=== PATIENT | male | born 1940 | race Caucasian/White ===

== ENCOUNTER 2021-11-21 10:31 | Inpatient (IN) | payer MEDICARE, BC, SELFPAY ==
[2021-11-21] VITALS (10 sets, daily range): BP systolic 130–152; BP diastolic 76–104; PULSE 90–110; RESP 16–22; TEMP 36.1–36.9; O2SAT 87–98; BMI 26.1
--- NOTE | ~2021-11-21 | CT_ITS ---
EXAMINATION: CTA chest PE protocol DATE: 11/21/2021 12:22 INDICATION: COVID-19 pneumonia. TECHNIQUE: Computed tomography angiography (CTA) of the chest was performed with 100 mL Omnipaque-350 intravenous contrast timed to evaluate the pulmonary arteries. Coronal maximum intensity projection 3D-reconstructions were created by the technologist. Automated exposure control and iterative reconst ruction technique were employed. The dose-length product was 710.43 mGy-cm. COMPARISON: Chest single view 11/21/2021 FINDINGS: Calcified pulmonary nodules and calcified hilar and mediastinal lymph nodes are consistent with old granulomatous disease. There are patchy airspace and groundglass opacities in right lower lo be. There are mild groundglass opacities in the upper lobes and left lower lobe. There is mild atelec tasis bilaterally. No pleural effusion. The heart size is normal. There are coronary artery calcifica tions. No pericardial effusion. There is no pulmonary embolus. There is mild noncalcified right hilar lymphadenopathy. The heart size is normal. No pericardial effusion. There are changes of cholecystec alisha. Epidural electrodes are noted. There is mild thoracic spondylosis and severe cervical spondylos is. IMPRESSION: 1. No pulmonary embolus. 2. Multifocal pneumonia, worst in right lower lobe. 3. Mild right hilar lymphadenopathy, likely reactive. Reviewed, dictated and finalized at location A.
--- NOTE | ~2021-11-21 | XR_ITS ---
EXAMINATION: XR chest 1V portable DATE: 11/21/2021 11:43 INDICATION: Shortness of breath. TECHNIQUE: A single frontal view of the chest was obtained on 2 radiographs. COMPARISON: None. FINDINGS: Calcified bilateral lung nodules and calcified hilar lymph nodes are consistent with old gr anulomatous disease. There is mild atelectasis in the lower lung zones. No pleural effusion or pneumo thorax. The heart size is normal. Surgical clips in the right upper quadrant are likely from cholecys tectomy. Epidural electrodes are noted. There is a suture anchor in left humeral head. IMPRESSION: 1. Mild atelectasis in the lower lung zones. Reviewed, dictated and finalized at location A.
--- NOTE | ~2021-11-21 | XR_ITS ---
XR chest 1V portable 11/23/2021 09:32 Indication: Lethargy. Shortness of breath. Procedure: AP portable chest Comparison: 11/21/2021 Findings: There is bilateral airspace disease in the perihilar and bibasilar locations. There is [place] bronchial thickening. Spinal stimulator leads are noted. There are cholecystectomy clips. Impression: 1: Interval development of bilateral airspace disease which may represent edema or pneumonia. Reviewed, dictated and finalized at location A. Impression: 1: Interval development of bilateral airspace disease which may represent edema or pneumonia.
--- NOTE | ~2021-11-21 | US_ITS ---
US abdomen limited INDICATION: Abnormal liver function tests PROCEDURE: Realtime right upper abdominal ultrasound. COMPARISON: No prior studies for comparison. FINDINGS: The pancreas is obscured by bowel content. Liver echotexture is normal without focal mass or intrahepatic biliary dilatation. There is normal directional flow in the portal vein. Gallbladder is surgically absent. Common bile duct measures 3 mm. IMPRESSION: 1: Unremarkable limited abdominal ultrasound. Reviewed, dictated and finalized at location A.
--- NOTE | 2021-11-21 11:07 | ECG_ITS ---
Measurements Intervals [place] Rate: 91 P: 31 NC: 170 QRS: 3 QRSD: 89 T: 3 QT: 355 QTc: 438 Interpretive Statements SINUS RHYTHM LOW QRS VOLTAGE IN PRECORDIAL LEADS [QRS DEFLECTION < 1.0 mV IN CHEST LEADS] INFERIOR MYOCARDIAL INFARCTION , PROBABLY OLD [40+ ms Q WAVE AND/OR ST/T ABNORMALITY IN II/aVF] NONSPECIFIC ST-T WAVE ABNORMALITY NO PREVIOUS ECG AVAILABLE FOR COMPARISON Electronically Signed On 11-21-2021 17:28:01 CDT by Cayla Burton M.D.
[2021-11-21 11:26] LABS: Alveolar/Arterial O2 Gradient 86.3 mmHg; Base Excess ABG -0.2 mEq/l (+/-2.0); Carboxyhemoglobin 1.4 % THb (0-2.0); Device NASAL CANNULA; Fractional Inspired Oxygen 28 %; HCO3 ABG 23.4 mEq/l (22.0-26.0); Methemoglobin ABG 0.3 %THb (0-1.5); Modified Allen's Test Pass; Oxygen Content ABG 16.3 %vol (16.0-22.0); Oxygen Saturation ABG 95.3 % (95.0-100.0); Oxyhemoglobin 91.2 % THb (90.0-100.0); PCO2 ABG 34.8 mmHg (35.0-45.0); PO2 ABG 72.3 mmHg (80.0-100.0); PO2 FiO2 Ratio Arterial Blood 2.58 %; Reduced Hemoglobin 7.1 %THb (0-5.0); Site Drawn LEFT RADIAL; Total Hemoglobin 12.7 g/dL (12.0-18.0); pH ABG 7.446 (7.350-7.450)
[2021-11-21 11:50] LABS: Basophils Percent Auto 0.4 % (0.2-1.2); Eosinophils Absolute Auto 0.5 K/mm3 (0-0.3); Eosinophils Percent Auto 6.6 % (0-4.4); Hematocrit 39.4 % (42.0-52.0); Hemoglobin 12.7 g/dL (14.0-18.0); Immature Granulocyte Absolute 0.04 K/mm3 (0.00-0.031); Immature Granulocyte Percent A 0.6 % (0-0.5); Lymphocytes Absolute Auto 0.46 K/mm3 (0.9-3.2); Lymphocytes Percent Auto 6.8 % (18.3-44.2); Mean Corpuscular HGB Conc 32.2 g/dl (32-36); Mean Corpuscular Hemoglobin 31.8 pg (26-34); Mean Corpuscular Volume 98.5 fl (80-100); Mean Platelet Volume 10.7 fl (7.4-10.4); Monocytes Absolute Auto 0.9 K/mm3 (0.1-0.6); Monocytes Percent Auto 12.7 % (2.6-8.5); Neutrophils Absolute Auto 4.9 K/mm3 (1.3-6.7); Neutrophils Percent Auto 72.9 % (45.5-73.1); Platelet Count Result 214 k/mm3 (150-375); Red Cell Distribution Width 14.9 % (11.5-14.5); White Blood Count 6.8 K/mm3 (4.5-10.0)
[2021-11-21 12:01] LABS: Alanine Aminotransferase 45 U/L (6-50); Albumin Level 3.9 g/dL (3.5-5.1); Alkaline Phosphatase 154 U/L (38-126); Anion Gap 13 mmol/L (8-16); Aspartate Amino Transferase 85 U/L (17-59); Blood Urea Nitrogen 29 mg/dL (9-20); Calcium 9.2 mg/dL (8.4-10.2); Carbon Dioxide 29 mmol/L (22-30); Chloride 109 mmol/L (98-107); Estimated CRCL calculation 56 ml/min; Estimated Glomerular Filt Rate > 60; Glucose 119 mg/dL (65-110); Potassium 3.4 mmol/L (3.4-5.0); Sodium 151 mmol/L (137-145)
[2021-11-21 12:03] LABS: Magnesium 2.5 mg/dL (1.6-2.3)
[2021-11-21 12:13] LABS: NT Pro B Type Natriuretic Pept 124 pg/mL (5-100)
--- NOTE | 2021-11-21 12:16 | ED.GENADULT ---
HPI - General Adult General Chief complaint: Shortness of Breath/Dyspnea Stated complaint: recent covid, b/l PNA on CXR History of Present Illness HPI narrative: 81-year-old male with past medical history of dementia and a shrinking spine per presents to our department from [facility]. Patient was diagnosed with COVID approximately 2 weeks prior to arrival which progressed to a pneumonia. He has been taking antibiotics for the pneumonia but staff at the residential noticed that patient had increasing oxygen requirements through the night. No further history available at this time as patient is nonverbal. All history obtained from family at bedside. Patient is a DNR. Related Data Allergies Allergy/AdvReac Type Severity Reaction Status Date / Time clindamycin AdvReac Hallucinati Verified 11/21/21 13:16 ng codeine AdvReac Vomiting Verified 11/21/21 13:16 Review of Systems Review of Systems: Gen.: Denies fevers or chills Eyes: Denies eye pain or visual change ENT: Denies congestion Respiratory: Denies shortness of breath or cough CV: Denies chest pain or palpitations GI: Denies abdominal pain nausea, emesis or diarrhea denies burning, urgency, frequency or hematuria Musculoskeletal: Denies back pain or muscle pain Neuro: Denies numbness, tingling, weakness or focal weakness Skin: Denies rash Except as documented, all other systems reviewed and negative Exam Narrative: GENERAL: Well-appearing, well-nourished, and in no acute distress. HEAD: Normocephalic, atraumatic. EYES: PERRLA and EOMI. ENT: Nares clear, no rhinorrhea or epistaxis. Mucous membranes moist. NECK: Supple. CHEST: Clear to auscultation. No respiratory distress. HEART: Regular rate and rhythm. No murmur heard. Normal peripheral pulses. ABDOMEN: Soft, nontender, nondistended, normal active bowel sounds. EXTREMITIES: Normal range of motion. No edema. SKIN: Warm, dry, no rash. NEURO: Alert and nonverbal PSYCH: Normal mood and affect. Course Vital Signs Vital signs: Vital Signs Temperature 97.6 F 11/21/21 10:34 Pulse Rate 101 H 11/21/21 10:34 Respiratory Rate 22 H 11/21/21 10:34 Blood Pressure 152/104 H 11/21/21 10:34 Pulse Oximetry 95 11/21/21 10:34 Temperature 97.6 F 11/21/21 10:34 Pulse Rate 92 11/21/21 11:51 Respiratory Rate 19 11/21/21 11:51 Blood Pressure 139/84 11/21/21 11:51 Pulse Oximetry 98 11/21/21 11:51 Oxygen Delivery Nasal Cannula 11/21/21 11:15 Oxygen Flow Rate 2 11/21/21 11:15 Medical Decision Making MDM Narrative Medical decision making narrative: Hypernatremia, prerenal azotemia, dehydration IMPRESSION: 1. No pulmonary embolus. 2. Multifocal pneumonia, worst in right lower lobe. 3. Mild right hilar lymphadenopathy, likely reactive. Broad-spectrum antibiotics ordered patient will require admission for pneumonia, dehydration, prerenal azotemia, hypernatremia. I had a comprehensive discussion with Fela the hospitalist who accepts admission. Vital Signs Vital Signs: Vital Signs Temperature 97.6 F 11/21/21 10:34 Pulse Rate 101 H 11/21/21 10:34 Respiratory Rate 22 H 11/21/21 10:34 Blood Pressure 152/104 H 11/21/21 10:34 Pulse Oximetry 95 11/21/21 10:34 Temperature 97.6 F 11/21/21 10:34 Pulse Rate 92 11/21/21 11:51 Respiratory Rate 19 11/21/21 11:51 Blood Pressure 139/84 11/21/21 11:51 Pulse Oximetry 98 11/21/21 11:51 Oxygen Delivery Nasal Cannula 11/21/21 11:15 Oxygen Flow Rate 2 11/21/21 11:15 Lab Data Result diagrams: 11/21/21 11:35 11/21/21 11:35 Labs: Lab Results 11/21/21 11/21/21 11/21/21 Range/Units 11:16 11:35 11:35 WBC 6.8 (4.5-10.0) K/mm3 RBC 4.00 L (4.6-6.20) M/mm3 Hgb 12.7 L (14.0-18.0) g/dL Hct 39.4 L (42.0-52.0) % MCV 98.5 (80-100) fl MCH 31.8 (26-34) pg MCHC 32.2 (32-36) g/dl RDW 14.9 H (11.5-14.5) % Plt Count
[2021-11-21 15:05] LABS: SARS-CoV-2 RNA PCR Positive
[2021-11-21] MEDS: LACTATED RINGERS 1,000 ML 500 ML IV CONT (15:11)
--- NOTE | 2021-11-21 19:45 | PM.IMHP ---
H&P: HPI History of Present Illness Date/Time: 11/21/21 19:45 Chief Complaint: Shortness of breath Narrative: this is an 81-year-old male patient who has a history of dementia and resides at [facility]. The patient is not able to answer questions for me. He could answer to his name but is not able to give any other answers the questions. The patient was recently diagnosed with COVID about 2 weeks ago. patient had developed pneumonia and had been on antibiotics for pneumonia the [facility] noticed that the patient had increasing oxygen requirements throughout the night. The patient is a DNR Information is obtained from [facility] records. His H&H is 12.7 and 39.4. Sodium is 151. Chloride 109. BUN 29. Magnesium is 2.5. Glucose 119. AST 85. Alkaline phosphatase 154. Troponin was negative. BNP 124. The patient continues to test positive for COVID. Chest x-ray was read as mild atelectasis in the lower lung zones. CTA was read as no pulmonary embolus. Multifocal pneumonia worse in the right lower lobe. Mild right hilar lymphadenopathy likely reactive. He was afebrile at the time of admission. the patient was started on lactated Ringer's, vancomycin and cefepime. Initially the patient was admitted to observation and then changed to inpatient status on the date of service of 11/21/2021. Review of Systems Review of Systems: See HPI. The patient is not able to answer questions. All systems reviewed & are unremarkable except as noted in HPI and below Constitutional: Constitutional: Reports as per HPI and Reports no additional constitutional complaints Eyes: Eyes: Reports as per HPI and Reports no additional eye complaints ENT: Reports system reviewed and no additional complaints, except as documented and Reports Normal hearing present Cardiovascular: Cardiovascular: Reports no additional cardiovascular complaints Respiratory: Respiratory: Reports no additional respiratory complaints and Reports no additional respiratory complaints Gastrointestinal: Gastrointestinal: Reports as per HPI and Reports no additional gastrointestinal complaints Musculoskeletal: Musculoskeletal: Reports no additional musculoskeletal complaints Integumentary/Breasts: Skin/Breast: Reports system reviewed and no additional complaints, except as docu and Reports as per HPI Neurologic: Reports system reviewed and no additional complaints, except as documented, Reports as per HPI and Reports Normal hearing present Psychiatric: Psychiatric: Reports no additional psychiatric complaints and Reports as per HPI Endocrine: Endocrine: Reports no additional endocrine complaints Hematologic/Lymphatic: Hematologic/Lymphatic: Reports no additional hematologic/lymphatic complaints Allergic/Immunologic: Allergic/Immunologic: Reports no additional allergic/immunologic complaints [facility] Past Medical History Medical History (Updated 11/21/21 @ 20:11 by Fela Garcia NP) BPH (benign prostatic hyperplasia) Chronic kidney disease Dementia Depression Generalized anxiety disorder History of COVID-19 Hypertension Obstructive sleep apnea Rheumatoid arthritis Surgical History Surgical History (Updated 11/21/21 @ 20:12 by Fela Garcia NP) Surgical history unknown Family History Family History Father Brain aneurysm Mother Parkinsons disease Pulmonary disease Congestive heart failure Sibling Dementia Social History Social History (Updated 11/21/21 @ 20:13 by Fela Garcia NP) Social History: the patient is listed as being and Retired. The patient has a listed for the next of kin and 2 sons and a daughter is emergency contact. code status DNR Smoking status: Never smoker Alcohol intake: never Substance use: never Substance use type: does not use Spiritual care concerns: No Meds Home Medications and
[2021-11-21 21:12] LABS: Anion Gap 8 mmol/L (8-16); Blood Urea Nitrogen 27 mg/dL (9-20); Calcium 8.9 mg/dL (8.4-10.2); Carbon Dioxide 28 mmol/L (22-30); Chloride 113 mmol/L (98-107); Estimated CRCL calculation 65 ml/min; Estimated Glomerular Filt Rate > 60; Glucose 115 mg/dL (65-110); Potassium 3.2 mmol/L (3.4-5.0); Sodium 149 mmol/L (137-145)
[2021-11-21] MEDS: MELATONIN 5 MG TABLET 10 MG PO (22:08)
[2021-11-21] MEDS: guaiFENesin 12 HR 600 MG TABCR PO (22:08)
[2021-11-21] MEDS: PREGABALIN (*CRX) 50 MG CAPSULE 100 MG PO (22:08)
[2021-11-22] VITALS (19 sets, daily range): BP systolic 122–164; BP diastolic 69–96; PULSE 83–112; RESP 16–22; TEMP 36.4–37.4; O2SAT 92–97
[2021-11-22] MEDS: IPRATROPIUM BR 0.02% INH SOLN 0.5 MG/2.5 ML VIAL INHALATION ×6 (00:15→20:46)
[2021-11-22] MEDS: POTASSIUM CHLORIDE 20 MEQ PACKET (FOR LIQUID) 40 MEQ PO (02:16)
[2021-11-22] MEDS: ACETAMINOPHEN 500 MG TABLET PO (02:16)
[2021-11-22] MEDS: ALBUTEROL SULFATE NEB 2.5 MG/3 ML INH INHALATION (04:02)
--- NOTE | 2021-11-22 10:04 | PCSTNOTE ---
Bedside Swallow Evaluation order cancelled as patient is appropriate for Modified Barium Swallow study.
--- NOTE | 2021-11-22 11:58 | PCSTNOTE ---
ST on hold: Modified Barium Swallow could not be completed today as patient would not arouse; will attempt again tomorrow.
--- NOTE | 2021-11-22 12:02 | PM.IMPN ---
Progress Note: A&P Assessment and Plan (1) Pneumonia: Code(s): J18.9 - Pneumonia, unspecified organism Status: Acute Assessment and Plan: - The patient was started on hospital-acquired pneumonia protocol with antibiotic stewardship of cefepime Zosyn and vancomycin. please deescalate antibiotics when feasible -He is 2 weeks post COVID and still testing positive for COVID. -Chest x-ray shows atelectasis but his CTA shows multifocal pneumonia worse in the right lower lobe. - the patient is currently hypoxic and he is on 2 L per nasal cannula. - the patient is a DNR in the event that his condition worsens. -continue with dual nebulizers. - sputum and blood cultures are pending. -Continue Tylenol for pain or fever. - continue with Mucinex -The patient had been on Levaquin outpatient. (2) Dementia: Code(s): F03.90 - Unspecified dementia, unspecified severity, without behavioral disturbance, psychotic disturbance, mood disturbance, and anxiety Status: Acute Assessment and Plan: -The patient is only orientated to himself. (3) Chronic kidney disease: Code(s): N18.9 - Chronic kidney disease, unspecified Status: Acute Assessment and Plan: -Patient's BUN is 29 creatinine is 1.0 with an estimated GFR of 56. Please continue to monitor. - avoid nephrotoxic medication. (4) BPH (benign prostatic hyperplasia): Code(s): N40.0 - Benign prostatic hyperplasia without lower urinary tract symptoms Status: Acute Assessment and Plan: - continue with tamsulosin. (5) Rheumatoid arthritis: Code(s): M06.9 - Rheumatoid arthritis, unspecified Status: Acute Assessment and Plan: - continue with Lyrica -Continue with Remeron Continue with Cymbalta -continue with Arava - continue with prednisone Continue with methotrexate (6) Obstructive sleep apnea: Code(s): G47.33 - Obstructive sleep apnea (adult) (pediatric) Status: Acute Assessment and Plan: home settings for CPAP (7) Generalized anxiety disorder: Code(s): F41.1 - Generalized anxiety disorder Status: Acute Assessment and Plan: - continue with Seroquel - continues Remeron (8) Depression: Code(s): F32.A - Depression, unspecified Status: Acute Assessment and Plan: -continue with Remeron -continue with Cymbalta (9) Hypertension: Code(s): I10 - Essential (primary) hypertension Status: Acute Assessment and Plan: -p.r.n. hydralazine with parameters (10) History of COVID-19: Code(s): Z86.16 - Personal history of COVID-19 Status: Acute Assessment and Plan: patient had a history of COVID infection weeks ago received treatment for it. Subjective Date/time seen: 11/22/21 12:02 Patient was seen during the morning rounds today. Patient has mild shortness of breath. No chest pain. Mood stable. Review of Systems Review of Systems: All systems reviewed & are unremarkable except as noted in HPI and below Constitutional: Constitutional: Reports as per HPI and Reports no additional constitutional complaints Eyes: Eyes: Reports as per HPI and Reports no additional eye complaints ENT: Reports system reviewed and no additional complaints, except as documented and Reports Normal hearing present Cardiovascular: Cardiovascular: Reports no additional cardiovascular complaints Respiratory: Respiratory: Reports no additional respiratory complaints and Reports no additional respiratory complaints Gastrointestinal: Gastrointestinal: Reports as per HPI and Reports no additional gastrointestinal complaints Musculoskeletal: Musculoskeletal: Reports no additional musculoskeletal complaints Integumentary/Breasts: Skin/Breast: Reports system reviewed and no additional complaints, except as docu and Reports as per HPI Neurologic: Reports system reviewed and no additional complaints, except as documented, R
[2021-11-22] MEDS: POTASSIUM CHLORIDE INJ 40 MEQ in SODIUM CHLORIDE 0.9% IV 500 ML 130 MEQ IVPB (14:37)
--- NOTE | 2021-11-22 16:14 | P.CDI_ITS ---
CDI Query Clarification Request Please clarify the status of the patient's COVID-19 infection, if known. Risk Factors:Patient diagnosed with COVID-19 two weeks prior to arrival, which progressed to pneumonia. Clinical Indicators: Patient continues to test positive for COVID, 11/21/21 Treatment: Vancomycin, Albuterol nebs. * COVID-19 is a current/active infection * Current condition is a sequela of COVID-19 * Past history of COVID-19 * Other explanation of clinical findings (please specify) * Unable to determine <KARINA Moseley - Last Filed: 11/22/21 16:17> Please clarify the status of the patient's COVID-19 infection, if known. Risk Factors:Patient diagnosed with COVID-19 two weeks prior to arrival, which progressed to pneumonia. Clinical Indicators: Patient continues to test positive for COVID, 11/21/21 Treatment: Vancomycin, Albuterol nebs. * COVID-19 is a current/active infection * Current condition is a sequela of COVID-19 * Past history of COVID-19 * Other explanation of clinical findings (please specify) * Unable to determine * <Mendez Bauer MD - Last Filed: 11/23/21 14:51> Clarified Diagnosis (1) Pneumonia: Code(s): J18.9 - Pneumonia, unspecified organism <KARINA Moseley - Last Filed: 11/22/21 16:17> Status: Acute <KARINA Moseley - Last Filed: 11/22/21 16:17> Assessment and Plan: Past history of COVID <Mendez Bauer MD - Last Filed: 11/23/21 14:51> Provider Comments Past history of COVID <Mendez Bauer MD - Last Filed: 11/23/21 14:51>
--- NOTE | 2021-11-22 20:50 | PC.NURSE ---
Held 2100 dose of Melatonin and Protonix due to NPO status and patient's inability to follow commands to open mouth/swallow. Patient has barium swallow study scheduled for 11/23/21.
[2021-11-23] VITALS (17 sets, daily range): BP systolic 123–143; BP diastolic 77–89; PULSE 84–106; RESP 14–20; TEMP 36.3–38.8; O2SAT 92–96
[2021-11-23] MEDS: IPRATROPIUM BR 0.02% INH SOLN 0.5 MG/2.5 ML VIAL INHALATION ×4 (01:10→13:30)
[2021-11-23] MEDS: hydrALAZINE HCL 20 MG/ML VIAL 10 MG IV PUSH (01:26)
[2021-11-23 06:27] LABS: Alanine Aminotransferase 79 U/L (6-50); Albumin Level 3.5 g/dL (3.5-5.1); Alkaline Phosphatase 174 U/L (38-126); Anion Gap 7 mmol/L (8-16); Aspartate Amino Transferase 117 U/L (17-59); Bilirubin,Total 1.4 mg/dL (0.2-1.3); Blood Urea Nitrogen 25 mg/dL (9-20); Calcium 8.8 mg/dL (8.4-10.2); Carbon Dioxide 27 mmol/L (22-30); Chloride 118 mmol/L (98-107); Estimated CRCL calculation 53 ml/min; Estimated Glomerular Filt Rate > 60; Glucose 107 mg/dL (65-110); Potassium 3.2 mmol/L (3.4-5.0); Sodium 152 mmol/L (137-145)
[2021-11-23 09:42] LABS: Hematocrit 41.8 % (42.0-52.0); Hemoglobin 12.9 g/dL (14.0-18.0); Mean Corpuscular HGB Conc 30.9 g/dl (32-36); Mean Corpuscular Hemoglobin 30.8 pg (26-34); Mean Corpuscular Volume 99.8 fl (80-100); Mean Platelet Volume 10.8 fl (7.4-10.4); Platelet Count Result 260 k/mm3 (150-375); Red Blood Count 4.19 M/mm3 (4.6-6.20); Red Cell Distribution Width 15.4 % (11.5-14.5); White Blood Count 7.5 K/mm3 (4.5-10.0)
[2021-11-23 09:51] LABS: Alanine Aminotransferase 84 U/L (6-50); Albumin Level 3.2 g/dL (3.5-5.1); Alkaline Phosphatase 166 U/L (38-126); Anion Gap 9 mmol/L (8-16); Aspartate Amino Transferase 116 U/L (17-59); Bilirubin,Total 1.2 mg/dL (0.2-1.3); Blood Urea Nitrogen 26 mg/dL (9-20); Calcium 8.8 mg/dL (8.4-10.2); Carbon Dioxide 25 mmol/L (22-30); Chloride 119 mmol/L (98-107); Estimated CRCL calculation 58 ml/min; Estimated Glomerular Filt Rate > 60; Glucose 102 mg/dL (65-110); Potassium 3.4 mmol/L (3.4-5.0); Sodium 153 mmol/L (137-145)
[2021-11-23] MEDS: DEXTROSE 5%/0.45% SOD CHL 1,000 ML 75 ML IV CONT (10:05)
--- NOTE | 2021-11-23 10:45 | PC.NURSE ---
Pt's , Roslyn, called asking for an update on pt's condition. I answered her questions. She explained that family (daughter and son in law) were coming into town this afternoon so they could all talk and make decisions about what they are willing to do going forward with pt's care.
[2021-11-23 11:15] LABS: Add Urine Microscopic? YES; Appearance Urine Cloudy (Clear); Bilirubin Urine Negative (Negative); Blood Urine Negative (Negative); Color Urine Amber (Yellow); Glucose Urine UA Negative (Negative); Ketones Urine Negative (Negative); Leukocyte Esterase Ur Negative LEU/UL (Negative); Mucus Urine Rare /lpf; Nitrate Urine Negative (Negative); Protein Urine 1+ mg/dL (Negative); Specific Grav Ur 1.024 (1.001-1.035); Squamous Epithelial Cell Urine Rare /hpf (Few); Urobilinogen Urine Negative mg/dL (<2.0)
--- NOTE | 2021-11-23 11:43 | PM.IMPN ---
Progress Note: A&P Assessment and Plan (1) Pneumonia: Code(s): J18.9 - Pneumonia, unspecified organism Status: Acute (2) Dementia: Code(s): F03.90 - Unspecified dementia, unspecified severity, without behavioral disturbance, psychotic disturbance, mood disturbance, and anxiety Status: Acute (3) Chronic kidney disease: Code(s): N18.9 - Chronic kidney disease, unspecified Status: Acute (4) BPH (benign prostatic hyperplasia): Code(s): N40.0 - Benign prostatic hyperplasia without lower urinary tract symptoms Status: Acute (5) Rheumatoid arthritis: Code(s): M06.9 - Rheumatoid arthritis, unspecified Status: Acute (6) Obstructive sleep apnea: Code(s): G47.33 - Obstructive sleep apnea (adult) (pediatric) Status: Acute (7) Generalized anxiety disorder: Code(s): F41.1 - Generalized anxiety disorder Status: Acute (8) Depression: Code(s): F32.A - Depression, unspecified Status: Acute (9) Hypertension: Code(s): I10 - Essential (primary) hypertension Status: Acute (10) History of COVID-19: Code(s): Z86.16 - Personal history of COVID-19 Status: Acute (11) Hypernatremia: Code(s): E87.0 - Hyperosmolality and hypernatremia Status: Acute Assessment and Plan: patient has difficulty swallowing. Because of drowsiness. Will give some IV fluids and monitor his sodium. Plan Past history of COVID Time Spent With Patient Time: Patient had positive COVID And received treatment would 2 weeks ago. Subjective Date/time seen: 11/23/21 11:43 Patient was seen during the morning rounds today. Patient is still very drowsy and weak. No shortness of breath or chest pain. Review of Systems Review of Systems: All systems reviewed & are unremarkable except as noted in HPI and below Constitutional: Constitutional: Reports as per HPI and Reports no additional constitutional complaints Eyes: Eyes: Reports as per HPI and Reports no additional eye complaints ENT: Reports system reviewed and no additional complaints, except as documented and Reports Normal hearing present Cardiovascular: Cardiovascular: Reports no additional cardiovascular complaints Respiratory: Respiratory: Reports no additional respiratory complaints and Reports no additional respiratory complaints Gastrointestinal: Gastrointestinal: Reports as per HPI and Reports no additional gastrointestinal complaints Musculoskeletal: Musculoskeletal: Reports no additional musculoskeletal complaints Integumentary/Breasts: Skin/Breast: Reports system reviewed and no additional complaints, except as docu and Reports as per HPI Neurologic: Reports system reviewed and no additional complaints, except as documented, Reports as per HPI and Reports Normal hearing present Psychiatric: Psychiatric: Reports no additional psychiatric complaints and Reports as per HPI Endocrine: Endocrine: Reports no additional endocrine complaints Hematologic/Lymphatic: Hematologic/Lymphatic: Reports no additional hematologic/lymphatic complaints Allergic/Immunologic: Allergic/Immunologic: Reports no additional allergic/immunologic complaints Exam Const: General: cooperative, comfortable, no acute distress, well developed, awake, average body habitus, well nourished and thin Nutritional Appearance: average body habitus, well nourished and thin Orientation/consciousness: oriented to person Limitations: no limitations HENMT: Head: normal to inspection, No palpable skull fracture present, normocephalic and atraumatic Ears: hearing grossly normal bilaterally and external ears normal Face/Nose/Sinus: Normal external nose present and Normal nares present Eyes: General: appearance normal, both eyes and all related structures Alignment and Position: alignment normal Periorbital: periorbital findings normal Eyelids: eyelids normal Pupils: Equal, round and reactiv
[2021-11-23] MEDS: POTASSIUM CHLORIDE INJ 40 MEQ in SODIUM CHLORIDE 0.9% IV 500 ML 100 MEQ IVPB (12:31)
[2021-11-23 14:09] LABS: Vancomycin Trough 6.6 ug/mL (10.0-20.0)
[2021-11-23] MEDS: MORPHINE SULFATE (*CRX) 2 MG/ML INJ IV PUSH (17:42)
--- NOTE | 2021-12-12 13:23 | PM.DS ---
DS: Admitting Diagnosis Discharge Date 11/23/21 Admitting Diagnosis pneumonia DS: Discharge Diagnosis Discharge Diagnosis (1) Pneumonia: Code(s): J18.9 - Pneumonia, unspecified organism Status: Acute Plan Past history of COVID DS: Summary Hospital Course Reason for hospitalization: pneumonia Hospital Course: patient was admitted with pneumonia, history of covid. After discussion with family patient was transferred to hospice for comfort measures. Status at Discharge Cognitive/behavioral status at discharge: Guarded Time Spent with Patient Time attestation: Total time spent providing and/or coordinating discharge services: Exam Const: General: cooperative, comfortable, no acute distress, well developed, awake, average body habitus, well nourished and thin Nutritional Appearance: average body habitus, well nourished and thin Orientation/consciousness: oriented to person Limitations: no limitations HENMT: Head: normal to inspection, No palpable skull fracture present, normocephalic and atraumatic Ears: hearing grossly normal bilaterally and external ears normal Face/Nose/Sinus: Normal external nose present and Normal nares present Eyes: General: appearance normal, both eyes and all related structures Alignment and Position: alignment normal Periorbital: periorbital findings normal Eyelids: eyelids normal Pupils: Equal, round and reactive pupils present Other: The patient refused open his eyes for me. Neck: Neck: normal visual inspection, full ROM, no lymphadenopathy, trachea midline and supple Chest: Chest palpation & inspection: normal inspection of the chest Resp: Effort & Inspection: normal respiratory effort Auscultation: diminished lung sounds Cardio: Palpation: normal PMI Rate: regular rate Rhythm: regular rhythm Heart sounds: S1 normal heart sound present and S2 normal heart sound present Peripheral pulses: Peripheral pulses 2+ throughout GI: Inspection: normal to inspection Auscultation: normal bowel sounds Rectal Exam: deferred Back/Spine/Pelvis: Cervical Spine: cervical ROM normal Skin: General skin exam: normal color Lesions: no lesions Rashes: no rashes Trauma: no lacerations or abrasions Wounds: no wounds Hair: male pattern alopecia Nails: normal Neuro: General: oriented to person Cranial nerves: Yes Equal, round and reactive pupils present and Yes Normal hearing present Speech: normal speech Motor exam (neuro): 5/5 motor strength present throughout Sensory Exam: normal sensation Extrem: General: normal to inspection Right upper extremity: normal to inspection and shoulder/upper arm Left upper extremity: normal to inspection and shoulder/upper arm Right lower extremity: normal to inspection Left lower extremity: normal to inspection Psych: Appearance: grossly normal Affect: normal affect Attitude: cooperative Insight: Poor insight present (Psych) Judgement: Poor judgement present (Psych) Discharge Plan Discharge Attending physician on discharge: Mendez Bauer Consulting providers: Fela Garcia ; Adolfo Burt ; Cayla Burton ; Francesco Conway V. Discharging Clinician: Mendez Bauer Patient Disposition: Hospice - Medical Facility Activity: as tolerated Diet: as tolerated Stand Alone Forms: General Discharge Information Follow-up/Referrals: Luisito Tran MD [Primary Care Provider] - Discharge Medications: No Action ketoconazole 2 % shampoo 1 applic TOPICAL DIRECTED Rx Instructions: on sundays and leave in for 5-10 minutes then rinse prednisone 5 mg tablet 5 mg PO DAILY amlodipine 5 mg tablet 5 mg PO DAILY omeprazole 40 mg capsule,delayed release(DR/EC) 40 mg PO DAILY leflunomide 20 mg tablet 20 mg PO DAILY lorazepam 0.5 mg tablet 0.5 mg PO BID lorazepam 0.5 mg tablet 0.5 mg PO DAILY PRN (Reason: Anxiety) methotrexate sodium 2.5 mg tablet 2.5 mg
== END 2021-11-23 18:00 | disposition hospice, inpatient (51) | DRG 194 ==
LOC: ANHED 10:53 → ANH3MEDSUR 15:06
PROVIDERS: Nurse Practitioner; Admitting Provider Hospitalist; Emergency Provider Emergency Medicine; PCP Family Medicine; Visit Provider Internal Medicine
DX: J18.9 Pneumonia, unspecified organism (principal); E87.0 Hyperosmolality and hypernatremia; Y95 Nosocomial condition; Z86.16 Personal history of COVID-19; F03.90 Unspecified dementia, unspecified severity, without behavioral disturbance, psychotic disturbance, mood disturbance, and anxiety; I12.9 Hypertensive chronic kidney disease with stage 1 through stage 4 chronic kidney disease, or unspecified chronic kidney disease; N18.9 Chronic kidney disease, unspecified; M06.9 Rheumatoid arthritis, unspecified; G47.33 Obstructive sleep apnea (adult) (pediatric); F41.1 Generalized anxiety disorder; F32.A Depression, unspecified; N40.0 Benign prostatic hyperplasia without lower urinary tract symptoms; Z66 Do not resuscitate; Z79.899 Other long term (current) drug therapy
CPT/HCPCS: 36415; 36600; 71045; 71275; 76705; 80048; 80053; 80202; 81001; 82375; 82565; 82805; 83050; 83735; 83880; 84443; 84484; 85025; 85027; 87040; 93005; 94640; 96365; 96367; 99285; A9270; C9803; G0378; J0131; J0360; J0692; J2270; J3370; J3480; J7040; J7120; Q9967; U0003; U0005

== ENCOUNTER 2021-11-23 19:05 | HOS | payer OTHER, MEDICARE, BC, SELFPAY ==
[2021-11-23 18:44] VITALS: O2SAT 94
[2021-11-23] MEDS: HYDROmorphone HCL/PF (*CRX) 50 MG in SODIUM CHLORIDE 0.9% IV 95 ML IV CONT (19:50)
[2021-11-23 20:00] VITALS: O2SAT 94
[2021-11-23] MEDS: GLYCOPYRROLATE INJ (*SP) 0.2 MG/ML VIAL 0.1 MG IV PUSH (20:07)
[2021-11-23] MEDS: HYDROmorphone HCL INJ (*CRX) 1 MG/ML SYR IV PUSH (22:42)
[2021-11-24] MEDS: diazePAM INJ (*CRX) 10 MG/2 ML SYRINGE 5 MG IV PUSH (00:41)
[2021-11-24] MEDS: GLYCOPYRROLATE INJ (*SP) 0.2 MG/ML VIAL 0.1 MG IV PUSH (13:59)
[2021-11-24 18:30] VITALS: PULSE 62; RESP 20
[2021-11-24] MEDS: HYDROmorphone HCL/PF (*CRX) 50 MG in SODIUM CHLORIDE 0.9% IV 95 ML IV CONT (18:30)
[2021-11-24 20:00] VITALS: PULSE 62; RESP 20; O2SAT 94
--- NOTE | 2021-11-24 20:37 | PM.IMHP ---
H&P: HPI History of Present Illness Date/Time: 11/24/21 20:37 Chief Complaint: dyspnea and agitation Narrative: 81 y/o m with dementia was diagnosed with COVID-19 11/06/21 and has declined in functional and mental abilities since. He was bedbound and incontinent. For the 5 days prior to admission he te nothing and drank very little. Prior to admission, he was dyspneic and agitated. Last night, he was more comfortable but still restless. His spouse allowed an increase in hydromorphone after he final son got into town and was able to interact with him earlier today. Since increase in hydromorphone from 0.5 to 1 mg per hour, he has remained comfortable. Review of Systems Review of Systems: ROS unobtainable: Yes unobtainable due to medical condition PMFSH Past Medical History Medical History (Updated 11/24/21 @ 20:43 by Delbert Tomlinson MD) BPH (benign prostatic hyperplasia) Chronic kidney disease Dementia Depression Generalized anxiety disorder History of COVID-19 History of COVID-19 History of COVID-19 History of COVID-19 History of COVID-19 Hypertension Obstructive sleep apnea Rheumatoid arthritis Surgical History Surgical History (Updated 11/21/21 @ 20:12 by Fela Garcia NP) Surgical history unknown Family History Family History Father Brain aneurysm Mother Parkinsons disease Pulmonary disease Congestive heart failure Sibling Dementia Social History Social History (Updated 11/21/21 @ 20:13 by Fela Garcia NP) Social History: the patient is listed as being and Retired. The patient has a listed for the next of kin and 2 sons and a daughter is emergency contact. code status DNR Smoking status: Never smoker Alcohol intake: never Substance use: never Substance use type: does not use Spiritual care concerns: No Meds Home Medications and Allergies Home Medications Medication Instructions Recorded Confirmed Type acetaminophen 500 mg tablet 500 mg PO Q6H PRN Mild Pain (Scale 11/21/21 11/21/21 History Score 1-4) amlodipine 5 mg tablet 5 mg PO DAILY 11/21/21 11/21/21 History cholecalciferol (vitamin D3) 50 50 mcg PO DAILY 11/21/21 11/21/21 History mcg (2,000 unit) tablet duloxetine 60 mg capsule,delayed 60 mg PO DAILY 11/21/21 11/21/21 History release fluticasone propionate 50 1 spray intranasal BID 11/21/21 11/21/21 History mcg/actuation nasal spray,suspension folic acid 1 mg tablet 1 mg PO DAILY 11/21/21 11/21/21 History furosemide 20 mg tablet 20 mg PO DAILY 11/21/21 11/21/21 History guaifenesin 600 mg tablet, 600 mg PO BID 11/21/21 11/21/21 History extended release 12 hr (Mucinex) hydroxychloroquine 200 mg tablet 200 mg PO BID 11/21/21 11/21/21 History ketoconazole 2 % shampoo 1 applic topical DIRECTED 11/21/21 11/21/21 History leflunomide 20 mg tablet 20 mg PO DAILY 11/21/21 11/21/21 History levofloxacin 500 mg tablet 500 mg PO DAILY 11/21/21 11/21/21 History lidocaine HCl 4 % topical patch 2 patch topical DAILY 11/21/21 11/21/21 History lorazepam 0.5 mg tablet 0.5 mg PO BID 11/21/21 11/21/21 History lorazepam 0.5 mg tablet 0.5 mg PO DAILY PRN Anxiety 11/21/21 11/21/21 History melatonin 10 mg tablet 10 mg PO HS 11/21/21 11/21/21 History methotrexate sodium 2.5 mg tablet 2.5 mg PO WEEKLY 11/21/21 11/21/21 History mirabegron 25 mg tablet,extended 25 mg PO DAILY 11/21/21 11/21/21 History release 24 hr (Myrbetriq) mirtazapine 7.5 mg tablet 7.5 mg PO DAILY 11/21/21 11/21/21 History omeprazole 40 mg capsule,delayed 40 mg PO DAILY 11/21/21 11/21/21 History release oxycodone 5 mg tablet 5 mg PO TID 11/21/21 11/21/21 History potassium chloride 20 mEq 20 meq PO BID 11/21/21 11/21/21 History tablet,extended release(part/cryst) prednisone 5 mg tablet 5 mg PO DAILY 11/21/21 11/21/21 History pregabalin 100 mg capsule 100 mg PO BID 11/21/21 11/21/21 History quetiapine 25 mg ta
[2021-11-25 08:00] VITALS: O2SAT 80
[2021-11-25] MEDS: HYDROmorphone HCL INJ (*CRX) 1 MG/ML SYR 2 MG IV PUSH ×2 (12:20→21:12)
[2021-11-25 14:00] VITALS: BP 111/80; PULSE 135; RESP 26; TEMP 37.1; O2SAT 80
[2021-11-25] MEDS: diazePAM INJ (*CRX) 10 MG/2 ML SYRINGE 5 MG IV PUSH (14:51)
[2021-11-25 16:34] VITALS: O2SAT 83
--- NOTE | 2021-11-25 17:57 | P.PNIM_ITS ---
Progress Note: A&P Assessment and Plan (1) Palliative care encounter: Code(s): Z51.5 - Encounter for palliative care Status: Acute Assessment and Plan: * Meets inpatient hospice criteria due to requiring continuous IV hydromorphone for control of dyspnea and agitation * Remainder of palliative regimen as ordered * 11/25: Increased hydromorphone drip to 1.5mg/hr. (2) Acute hypoxemic respiratory failure due to COVID-19: Code(s): U07.1 - COVID-19; J96.01 - Acute respiratory failure with hypoxia Status: Acute (3) Aspiration pneumonitis: Code(s): J69.0 - Pneumonitis due to inhalation of food and vomit Status: Acute Subjective Date/time seen: 11/25/21 17:57 Family at bedside is concerned re: mild tachypnea, chest movment with respirations. Review of Systems Review of Systems: ROS unobtainable: Yes unobtainable due to medical condition Exam Narrative: Sleeping and unresponsive to verbal or tactile stimuli. No JVD BS coarse with diffuse coarse crackles HR regular w/o audible murmurs BS hypoactive, abd soft w/o obvious tenderness. Extr w/o edema CN symmetric to visual inspection Objective Data Vital Signs Vital Signs: Vital Signs - 24 hr 11/24/21 18:30 11/24/21 18:30 11/24/21 20:00 Pulse Rate 62 62 62 Respiratory Rate 20 20 20 Pulse Oximetry 94 Oxygen Delivery Nasal Cannula Oxygen Flow Rate 3 11/25/21 08:00 11/25/21 16:34 Pulse Rate Respiratory Rate Pulse Oximetry 80 L 83 L Oxygen Delivery Nasal Cannula Nasal Cannula Oxygen Flow Rate 4 5 Intake/Output Intake/Output: Intake & Output 11/22/21 11/23/21 11/24/21 11/25/21 23:59 23:59 23:59 23:59 Intake Total 0 Output Total 850 Balance -850 Meds/Results Medications: Active Medications Generic Name Dose Route Start Last Admin Trade Name Freq PRN Reason Stop Dose Admin Bisacodyl 10 mg 11/23/21 19:00 Bisacodyl 10 Mg Suppository RECTAL DAILY PRN Constipation Diazepam 5 mg 11/23/21 18:59 11/25/21 14:51 Diazepam Inj (*Crx) 10 Mg/2 Ml Syringe IV PUSH 5 mg Q6H PRN Administration RESTLESSNESS/AGITATION Glycopyrrolate 0.1 mg 11/23/21 19:00 11/24/21 13:59 Glycopyrrolate Inj (*Sp) 0.2 Mg/Ml Vial IV PUSH 0.1 mg Q4H PRN Administration secretions Hydromorphone HCl 2 mg 11/24/21 14:20 11/25/21 12:20 Hydromorphone Hcl Inj (*Crx) 1 Mg/Ml Syr IV PUSH 2 mg Q2H PRN Administration Pain Hydromorphone HCl 50 mg/ 100 mls @ 2 mls/hr 11/23/21 19:00 11/24/21 18:30 Sodium Chloride IV CONT 1 mg/hr .Q24H TIFFANIE 2 mls/hr Administration 1 MG/HR Prochlorperazine Edisylate 10 mg 11/23/21 19:00 Prochlorperazine Edisylate 10 Mg/2 Ml Vial IV PUSH Q6H PRN Nausea And Vomiting
[2021-11-25 18:20] VITALS: PULSE 133; RESP 24
[2021-11-25] MEDS: HYDROmorphone HCL/PF (*CRX) 50 MG in SODIUM CHLORIDE 0.9% IV 95 ML IV CONT (18:20)
[2021-11-25 20:00] VITALS: BP 102/65; PULSE 132; RESP 22; TEMP 39.7; O2SAT 86
[2021-11-25] MEDS: ACETAMINOPHEN 650 MG SUPPOSITORY RECTAL (22:44)
[2021-11-26] MEDS: HYDROmorphone HCL INJ (*CRX) 1 MG/ML SYR 2 MG IV PUSH (06:10)
[2021-11-26 08:00] VITALS: BP 88/55; PULSE 125; RESP 22; TEMP 36.9; O2SAT 89
[2021-11-26] MEDS: diazePAM INJ (*CRX) 10 MG/2 ML SYRINGE 5 MG IV PUSH (11:59)
[2021-11-26 12:02] VITALS: PULSE 123; RESP 24
[2021-11-26] MEDS: HYDROmorphone HCL/PF (*CRX) 50 MG in SODIUM CHLORIDE 0.9% IV 95 ML 6 MG IV CONT (12:02)
--- NOTE | 2021-11-26 20:00 | PM.DDS ---
Discharge Summary Date and Time Date of : 11/26/21 Time of : 12:37 Provider Pronounced By: Loreto Acuña Probable Cause of Probable Cause of : acute hypoxemic respiratory failure due to COVID-19 pneumonia and subsequent aspiration pneumonitis Summary Hospital Course: Mr. Sanches was admitted to inpatient hospice service due to uncontrolled dyspnea and restlessness. Medications were titrated to comfort. He peacefully. Additional Data Confirmation of as documented by pronouncing clinician: Pupillary Reflex, Palpable Pulses, Response to Stimuli, Heart Tones and Breath Sounds Name of Provider Notified: Dr. Tomlinson Time Provider Notified: 12:48 Provider Requests Autopsy: No Family Requests Autopsy: No Clinical Application Specialist Notified: Yes Date [facility] Notified of : 11/26/21 Time [facility] Notified of : 13:13
--- NOTE | 2021-12-12 13:05 | PM.DS ---
DS: Admitting Diagnosis Discharge Date 11/23/21 Admitting Diagnosis covid 19 DS: Discharge Diagnosis Discharge Diagnosis (1) Acute hypoxemic respiratory failure due to COVID-19: Code(s): U07.1 - COVID-19; J96.01 - Acute respiratory failure with hypoxia Status: Acute (2) Aspiration pneumonitis: Code(s): J69.0 - Pneumonitis due to inhalation of food and vomit Status: Acute DS: Summary Hospital Course Reason for hospitalization: Covid 19 Hospital Course: Patient was admitted with covid 19 and respiratory failure. After family meeting it was decided to transfer patient to hospice care for comfort measures. Status at Discharge Cognitive/behavioral status at discharge: Guarde Time Spent with Patient Time attestation: Total time spent providing and/or coordinating discharge services: Exam Narrative: Sleeping and unresponsive to verbal or tactile stimuli. No JVD BS coarse with diffuse coarse crackles HR regular w/o audible murmurs BS hypoactive, abd soft w/o obvious tenderness. Extr w/o edema CN symmetric to visual inspection Discharge Plan Discharge Attending physician on discharge: Mendez Bauer Consulting providers: Zoe Ha Discharging Clinician: Mendez Bauer Patient Disposition: Activity: as tolerated Diet: as tolerated Discharge Medications: Continued acetaminophen 500 mg Tablet 500 mg PO Q6H PRN (Reason: Mild Pain (Scale Score 1-4)) Qty: 30 0RF Discontinued ketoconazole 2 % shampoo 1 applic TOPICAL DIRECTED Rx Instructions: on sundays and leave in for 5-10 minutes then rinse prednisone 5 mg tablet 5 mg PO DAILY amlodipine 5 mg tablet 5 mg PO DAILY omeprazole 40 mg capsule,delayed release(DR/EC) 40 mg PO DAILY leflunomide 20 mg tablet 20 mg PO DAILY lorazepam 0.5 mg tablet 0.5 mg PO BID lorazepam 0.5 mg tablet 0.5 mg PO DAILY PRN (Reason: Anxiety) methotrexate sodium 2.5 mg tablet 2.5 mg PO WEEKLY tamsulosin 0.4 mg capsule 0.4 mg PO DAILY folic acid 1 mg tablet 1 mg PO DAILY furosemide 20 mg tablet 20 mg PO DAILY hydroxychloroquine 200 mg tablet 200 mg PO BID mirtazapine 7.5 mg tablet 7.5 mg PO DAILY duloxetine 60 mg capsule,delayed release(DR/EC) 60 mg PO DAILY pregabalin 100 mg capsule 100 mg PO BID melatonin 10 mg Tablet 10 mg PO HS quetiapine 25 mg tablet 25 mg PO DAILY potassium chloride 20 mEq tablet,ER particles/crystals 20 meq PO BID levofloxacin 500 mg Tablet 500 mg PO DAILY Rx Instructions: though 11/25/2021 fluticasone propionate [Flonase] 50 mcg/actuation [place],Suspension 1 spray INTRANASAL BID Rx Instructions: administer into each nostril oxycodone 5 mg tablet 5 mg PO TID cholecalciferol (vitamin D3) 50 mcg (2,000 unit) Tablet 50 mcg PO DAILY Rx Instructions: through 11/29/21 guaifenesin [Mucinex] 600 mg Tablet Extended Release 12hr 600 mg PO BID Rx Instructions: through 12/03/2021 Myrbetriq 25 mg tablet extended release 24 hr 25 mg PO DAILY lidocaine HCl 4 % Adhesive Patch,Medicated 2 patch TOPICAL DAILY Rx Instructions: apply 1 patch on each hip on in am and off in pm Date of admission: 11/23/21 19:05 Primary Care Provider: Luisito Tran Admitting Provider: Delbert Tomlinson Attending physician on admission: Delbert Tomlinson
== END 2021-11-26 18:05 | disposition expired | DRG 951 ==
PROVIDERS: Admitting Provider Internal Medicine; PCP Family Medicine; Visit Provider Internal Medicine
DX: Z51.5 Encounter for palliative care (principal); J96.01 Acute respiratory failure with hypoxia; J69.0 Pneumonitis due to inhalation of food and vomit; I12.9 Hypertensive chronic kidney disease with stage 1 through stage 4 chronic kidney disease, or unspecified chronic kidney disease; N18.9 Chronic kidney disease, unspecified; M06.9 Rheumatoid arthritis, unspecified; F03.90 Unspecified dementia, unspecified severity, without behavioral disturbance, psychotic disturbance, mood disturbance, and anxiety; Z86.16 Personal history of COVID-19
CPT/HCPCS: A9270; J1170; J3360